=== PATIENT | female | born 1935 | race Caucasian/White ===

== ENCOUNTER 2018-08-13 09:31 | Emergency (ER) | payer MEDICARE ==
[2018-08-13 09:53] VITALS: BP 176/61
--- NOTE | 2018-08-13 10:09 | UC ---
Lower Extremity/Ankle HPI - HPI Summary HPI Summary: sore on the left foot x 2 weeks located on the plantar aspect of the left foot, mild tenderness/ itchy , had a blister at the spot few weeks ago and became infected no foot redness, no swelling, no fever, no chills - History of Current Complaint Chief Complaint: UCLowerExtremity Stated Complaint: SORE ON BOTTOM OF LT FOOT Time Seen by Provider: 08/13/18 09:56 Hx Obtained From: Patient Onset/Duration: Gradual Onset, Lasting Weeks - 2, Still Present Severity Initially: Moderate Severity Currently: Moderate Pain Intensity: 0 Aggravating Factor(s): Standing, Ambulation Alleviating Factor(s): Rest, Elevation Able to Bear Weight: Yes - Allergies/Home Medications Allergies/Adverse Reactions: Allergies Allergy/AdvReac Type Severity Reaction Status Date / Time No Known Allergies Allergy Verified 08/13/18 09:43 Home Medications: Home Medications Aspirin TAB* [Aspirin 325 MG TAB*] 325 mg PO DAILY 08/13/18 [History Confirmed 08/13/18] Daily Bp Med, ? Name 1 tab PO DAILY 08/13/18 [History] Glucosam/Chondr/Collagn/Hyalur [Glucosamine & Chondroitin Cap] 1 each PO DAILY 08/13/18 [History Confirmed 08/13/18] PMH/Surg Hx/FS Hx/Imm Hx Cardiovascular History: Hypertension - Surgical History Surgical History: Yes Surgery Procedure, Year, and Place: RIGHT TOTAL KNEE 2004 - Family History Known Family History: Positive: Hypertension - Social History Alcohol Use: None Substance Use Type: None Smoking Status (MU): Former Smoker When Did the Patient Quit Smoking/Using Tobacco: 40 YEARS AGO Review of Systems All Other Systems Reviewed And Are Negative: Yes Constitutional: Positive: Negative Skin: Positive: Negative Eyes: Positive: Negative ENT: Positive: Negative Respiratory: Positive: Negative Is Patient Immunocompromised?: No Physical Exam Triage Information Reviewed: Yes Appearance: Well-Appearing, No Pain Distress, Well-Nourished Vital Signs: Initial Vital Signs Temp 98.3 F 08/13/18 09:46 Pulse 86 08/13/18 09:46 Resp 14 08/13/18 09:46 BP 176/61 08/13/18 09:46 Pulse Ox 97 08/13/18 09:46 Vital Signs Reviewed: Yes Eye Exam: Normal Eyes: Positive: Conjunctiva Clear ENT: Positive: Normal ENT inspection, Hearing grossly normal, Pharynx normal Neck: Positive: Supple, Nontender, No Lymphadenopathy Respiratory: Positive: Chest non-tender, Lungs clear, Normal breath sounds Cardiovascular: Positive: RRR, No Murmur, Pulses Normal Skin: Positive: Other - left foot plantar surface: healing blister, no erythema , no swelling, no discharege, no tenderness, healing well Lower Extremity Course/Dx - Differential Dx/Diagnosis Provider Diagnosis: Blister of foot Discharge - Sign-Out/Discharge Documenting (check all that apply): Patient Departure All imaging exams completed and their final reports reviewed: No Studies - Discharge Plan Condition: Stable Disposition: HOME Patient Education Materials: Blister (ED) Referrals: Isi Fried PA [Primary Care Provider] - If Needed Additional Instructions: healing foot blister, keep the area clean and dry , may apply a bandaid on the area to prevent friction - Billing Disposition and Condition Condition: STABLE Disposition: Home
== END 2018-08-13 10:09 | disposition home or self-care (01) ==
LOC: UCCORT 09:31
DX: S90.822A Blister (nonthermal), left foot, initial encounter (principal); X58.XXXA Exposure to other specified factors, initial encounter; Y92.9 Unspecified place or not applicable; I10 Essential (primary) hypertension; Z87.891 Personal history of nicotine dependence
CPT/HCPCS: 99211; G0463